=== PATIENT | female | born 1945 | race Caucasian/White ===

== ENCOUNTER → 2020-08-18 | Outpatient (CLI) | payer MEDICARE ==
[~2020-08-18] MED LIST: AMLO5TAB2 PO; ASP325TEC PO; DULO60CA6 PO; HYDR-3720 PO; HYDR1TAB PO; IBUP-15 PO; IRON PO; LOVA20TA2 PO; LVT.05T PO; OLME20TA5; TRIA1CAP4 PO; premarin; triam/hctz
--- NOTE | 2020-08-18 11:13 | Diagnostic Imaging Report ---
INDICATION: Routine screening. Comparison is made with prior mammogram 07/10/2010 and 04/14/2007. 2-D and 3-D bilateral screening mammography was performed with CAD. Scattered fibroglandular densities are identified bilaterally. The parenchymal pattern is stable. No mass or malignant appearing microcalcifications are seen. Axillae are unremarkable. IMPRESSION: BI-RADS Category 1 No mammographic features suspicious for malignancy are identified. ACR BI-RADS Category 1: Negative. Result letter will be mailed to the patient. Note: At least 10% of breast cancer is not imaged by mammography. Dictated by: Dictated on workstation # [id number]
== END ==
LOC: RAD 09:00
PROVIDERS: ATTEND Internal Medicine
DX: Z12.31 Encounter for screening mammogram for malignant neoplasm of breast (principal)
CPT/HCPCS: 77063; 77067

== ENCOUNTER → 2022-06-18 | Outpatient (CLI) | payer MEDICARE | LOC: WOUNDCARE 12:57 | PROVIDERS: ATTEND Family Medicine | DX: L97.212 Non-pressure chronic ulcer of right calf with fat layer exposed (principal); C44.712 Basal cell carcinoma of skin of right lower limb, including hip; L03.115 Cellulitis of right lower limb; T45.1X5A Adverse effect of antineoplastic and immunosuppressive drugs, initial encounter; I96 Gangrene, not elsewhere classified | CPT/HCPCS: 11104; 87070; 87205; A6260; G0463 ==

== ENCOUNTER → 2022-06-26 | Outpatient (CLI) | payer MEDICARE | LOC: WOUNDCARE 14:44 | PROVIDERS: ATTEND Family Medicine | DX: L97.212 Non-pressure chronic ulcer of right calf with fat layer exposed (principal); C44.712 Basal cell carcinoma of skin of right lower limb, including hip; T45.1X5A Adverse effect of antineoplastic and immunosuppressive drugs, initial encounter; I96 Gangrene, not elsewhere classified | CPT/HCPCS: 97597; 97598; G0463 ==

== ENCOUNTER → 2022-07-03 | Outpatient (CLI) | payer MEDICARE | LOC: WOUNDCARE 10:56 | PROVIDERS: ATTEND Family Medicine | DX: L97.212 Non-pressure chronic ulcer of right calf with fat layer exposed (principal); C44.712 Basal cell carcinoma of skin of right lower limb, including hip; T45.1X5A Adverse effect of antineoplastic and immunosuppressive drugs, initial encounter; I96 Gangrene, not elsewhere classified | CPT/HCPCS: 11042; G0463 ==

== ENCOUNTER → 2022-07-10 | Outpatient (CLI) | payer MEDICARE | LOC: WOUNDCARE 10:57 | PROVIDERS: ATTEND Family Medicine | DX: C44.712 Basal cell carcinoma of skin of right lower limb, including hip (principal); I96 Gangrene, not elsewhere classified; T45.1X5A Adverse effect of antineoplastic and immunosuppressive drugs, initial encounter; L97.212 Non-pressure chronic ulcer of right calf with fat layer exposed | CPT/HCPCS: 11042; G0463 ==

== ENCOUNTER → 2022-07-17 | Outpatient (CLI) | payer MEDICARE | LOC: WOUNDCARE 10:58 | PROVIDERS: ATTEND Family Medicine | DX: I96 Gangrene, not elsewhere classified (principal); L97.212 Non-pressure chronic ulcer of right calf with fat layer exposed; C44.712 Basal cell carcinoma of skin of right lower limb, including hip; T45.1X5A Adverse effect of antineoplastic and immunosuppressive drugs, initial encounter | CPT/HCPCS: 11042; G0463 ==